=== PATIENT | male | born 1990 | race Caucasian/White ===

== ENCOUNTER 2022-05-04 18:02 | Emergency (ER) | payer OTHER ==
[~2022-05-04] VITALS: Ht 180.3 cm; Wt 86.2 kg
[2022-05-04 18:13] VITALS: BP 99/55
--- NOTE | 2022-05-04 19:19 | NUR ---
US TECH AT PT'S BEDSIDE
[2022-05-04 19:53] LABS: BASOPHILS % (AUTO) 0.6 % (0.0-2.0); EOSINOPHILS % (AUTO) 2.2 % (0.0-6.0); LYMPHOCYTES # (AUTO) 2.4 K/uL (0.8-4.8); LYMPHOCYTES % (AUTO) 41.1 % (20.0-44.0); MEAN CORPUSCULAR HGB CONC 34 g/dl (31.0-36.0); MEAN CORPUSCULAR VOLUME 89 fL (80-96); MONOCYTES # (AUTO) 0.8 K/uL (0.1-1.30); MONOCYTES % (AUTO) 13.9 % (2.0-12.0); NEUTROPHILS # (AUTO) 2.5 K/uL (1.8-8.9); NEUTROPHILS % (AUTO) 42.2 % (43.0-81.0)
--- NOTE | 2022-05-04 20:00 | NUR ---
PER US TECH, PT NEGATIVE FOR DVT; DR. MENESES AWARE.
--- NOTE | 2022-05-04 20:02 | NUR ---
CRITICAL LAB VALUE: PLT 26 DR. GIDEON EARLY.
--- NOTE | 2022-05-04 20:15 | NUR ---
[employer] LABORER AT PT'S BEDSIDE FOR REDRAW.
[2022-05-04 20:25] LABS: CALCIUM, SERUM 8.6 mg/dL (8.5-10.1); CARBON DIOXIDE 26 mmol/L (21-32); CHLORIDE 104 mmol/L (98-107); CREATININE 0.8 mg/dL (0.6-1.3); GLUCOSE 103 mg/dL (74-106); POTASSIUM 4.2 mmol/L (3.5-5.1); SODIUM SERUM 139 mmol/L (136-145); UREA NITROGEN, BLOOD 14 mg/dL (7-18)
[2022-05-04 20:37] LABS: ALANINE AMINOTRANSFERASE 93 U/L (12-78); ALBUMIN 3.5 g/dL (3.4-5.0); ALKALINE PHOSPHATASE 84 U/L (46-116); ASPARTATE AMINOTRANSFERASE 48 U/L (15-37); BILIRUBIN,DIRECT 0.1 mg/dL (0.0-0.2); BILIRUBIN,TOTAL 0.2 mg/dL (0.2-1.0); TOTAL PROTEIN, SERUM 7.2 g/dL (6.4-8.2)
--- NOTE | 2022-05-04 21:01 | NUR ---
COVID ANTIGEN SWAB COLLECTED AND SENT TO LAB
[2022-05-04 21:16] LABS: WHITE BLOOD COUNT (AUTO) 7.3 K/uL (4.3-11.0)
[2022-05-04 21:17] LABS: HEMATOCRIT 40 % (39-51); HEMOGLOBIN 13.8 g/dL (13.5-17.5); RED BLOOD CELL COUNT(AUTO) 4.65 MIL/uL (4.5-6.0)
--- NOTE | 2022-05-04 21:17 | NUR ---
Patient eloped from facility. ER DR. Iftikhar VANEGAS notified. No IV Access.
[2022-05-04 21:18] LABS: PLATELET COUNT (AUTO) 210 K/uL (150-450)
[2022-05-04 21:53] LABS: EOSINOPHILS % (MANUAL) 4 % (0-4); LYMPHOCYTES % (MANUAL) 36 % (16-48); MONOCYTES % (MANUAL) 8 % (0-11.0); NEUTROPHILS % (MANUAL) 52 (42-76)
== END 2022-05-04 21:17 | disposition left against medical advice (07) ==
LOC: ER 18:07
DX: R60.0 Localized edema (principal); R91.8 Other nonspecific abnormal finding of lung field; Z20.822 Contact with and (suspected) exposure to COVID-19; F17.200 Nicotine dependence, unspecified, uncomplicated; Z53.20 Procedure and treatment not carried out because of patient's decision for unspecified reasons
CPT/HCPCS: 36415; 71045; 80048; 80076; 80320; 83880; 84484; 85007; 85025; 87426; 93970; 99285; C9803; G0480

== ENCOUNTER 2022-05-08 00:51 | Emergency (ER) | payer SELFPAY ==
[~2022-05-08] VITALS: Ht 180.3 cm; Wt 86.2 kg
[2022-05-08 02:10] VITALS: BP 118/70
--- NOTE | 2022-05-08 02:38 | NUR ---
Patient discharged to home in stable condition. Written and verbal after care instructions given. Patient verbalizes understanding of instruction.
== END 2022-05-08 02:40 | disposition home or self-care (01) ==
LOC: ER 00:56
DX: R60.0 Localized edema (principal); F12.90 Cannabis use, unspecified, uncomplicated